=== PATIENT | female | born 1970 | race Caucasian/White ===

== ENCOUNTER 2016-10-12 11:11 | Emergency (ER) | payer OTHER ==
--- NOTE | 2016-11-05 21:30 | ER ---
ADMIT: 10/12/2016 RM/LOC: ER [facility] MR#: [id number] [address] TANMAY JIMENEZ [address] [address] Emergency Room Report SEX: F AGE: 46 : 1970 DATE: 10/12/2016 This 46-year-old female comes to the Emergency Department with complaints of right upper quadrant abdominal pain. She has a history of a cholecystectomy back in 1995. She said she has frequent bouts of this type of pain, but never as severe as today. She has been told it is her reflux, however, she rated the pain at a 15/10 today, saying there is something terribly wrong. See T-sheet for history and physical. CBC was within normal limits. CMP was likewise within normal limits including lipase. CT scan of the abdomen showed no acute findings. Small amount of fluid in the pelvis, which the radiologist thought was secondary to an ovarian cyst. DIAGNOSIS: Abdominal pain. Instructed follow up on Friday with Dr. Farmer. Rishabh Villegas MD/ nicholas JOB #: [id number] CC: Rishabh Villegas MD, Attending Physician
== END 2016-10-12 13:53 | disposition home or self-care (01) ==
LOC: ER 11:11
DX: R10.11 Right upper quadrant pain (principal); F17.210 Nicotine dependence, cigarettes, uncomplicated; Z88.5 Allergy status to narcotic agent; Z98.890 Other specified postprocedural states; Z79.899 Other long term (current) drug therapy

== ENCOUNTER 2016-10-20 07:20 | Emergency (ER) | payer OTHER ==
--- NOTE | 2016-10-23 13:18 | ER ---
ADMIT: 10/20/2016 RM/LOC: ER [facility] MR#: [id number] [id number] TANMAY JIMENEZ [address] [address] Emergency Room Report SEX: F AGE: 46 : 1970 DATE: 10/20/2016 TIME: 0720 hours. Please refer to my T-sheet for complete H and P. HISTORY OF PRESENT ILLNESS: Briefly, the patient is a 46-year-old comes in, she says she is unable to urinate, started this morning. She has had problems with this in the past. She has had a hysterectomy and a bladder sling. No pain or burning with urination. No other complaints. She has been fighting some abdominal problems, she has irritable bowel syndrome and has had a CAT scan just done here a week or so ago. PHYSICAL EXAMINATION: VITAL SIGNS: Stable. HEENT: Grossly normal. ABDOMEN: Slightly tender in the epigastric, but minimal. Her bladder is severely distended. EMERGENCY DEPARTMENT COURSE: We did a bladder scan, it was greater than 1000 mL, placed a Nxion. She had complete resolution in her symptoms. Her urine came back normal. I had a long discussion with her, ready for discharge. ASSESSMENT: Acute urine retention. PLAN: Bactrim DS b.i.d. x5 days, fluids, return if worse. I want her to see Dr. Farmer this week. Juan Jauregui MD/ nicholas JOB #: [id number] CC: Juan Jauregui MD, Attending Physician
== END 2016-10-20 08:56 | disposition home or self-care (01) ==
LOC: ER 07:20
PROC: 0T9B70Z Drainage of Bladder with Drainage Device, Via Natural or Artificial Opening (ICD-10-PCS; principal; 2016-10-20)
DX: R33.9 Retention of urine, unspecified (principal); F17.200 Nicotine dependence, unspecified, uncomplicated; Z79.899 Other long term (current) drug therapy